=== PATIENT | male | born 1995 | race Caucasian/White ===

== ENCOUNTER 2018-11-23 00:52 | Emergency (ER) | payer MEDICAID ==
[~2018-11-23] VITALS: Ht 188 cm; Wt 74.8 kg
[2018-11-23 01:01] VITALS: BP 145/86
[2018-11-23] MEDS ORDERED: BACITRACIN TOP OINT 1 UD PKG TOP ONE (04:15)
[2018-11-23] MEDS ORDERED: LIDOCAINE 1% HCL (LOCAL ANESTH.) INJ 20ML MDV IJ ONE (04:15)
[2018-11-23] MEDS ORDERED: cefTRIAXone SOD 1,000 MG VL IM ONE (04:45)
[2018-11-23] MEDS ORDERED: IBUPROFEN 800 MG TAB PO ONE (04:45)
== END 2018-11-23 05:18 | disposition home or self-care (01) ==
LOC: EDBD 00:52 → ER 00:56
DX: S61.411A Laceration without foreign body of right hand, initial encounter (principal); F17.210 Nicotine dependence, cigarettes, uncomplicated; X99.1XXA Assault by knife, initial encounter; Y93.89 Activity, other specified; Y99.8 Other external cause status; Y92.89 Other specified places as the place of occurrence of the external cause
CPT/HCPCS: 12002; 73130; 96372; 99283; J0696; J2001

== ENCOUNTER 2019-08-24 09:01 | Emergency (ER) | payer MEDICAID ==
[~2019-08-24] VITALS: Ht 172.7 cm; Wt 79.4 kg
[2019-08-24 09:11] VITALS: BP 123/82
[2019-08-24] MEDS ORDERED: IBUPROFEN 600 MG TAB PO ONE (10:45)
== END 2019-08-24 10:57 | disposition home or self-care (01) ==
LOC: EDBD 09:01 → ER 09:01
DX: R07.89 Other chest pain (principal); F17.210 Nicotine dependence, cigarettes, uncomplicated
CPT/HCPCS: 71046; 93005

== ENCOUNTER 2019-09-13 01:55 | Emergency (ER) | payer MEDICAID ==
[~2019-09-13] VITALS: Ht 182.9 cm; Wt 81.6 kg
[2019-09-13 03:51] VITALS: BP 129/92
== END 2019-09-13 04:08 | disposition home or self-care (01) ==
LOC: EDBD 01:55 → ER 01:55
DX: S02.2XXA Fracture of nasal bones, initial encounter for closed fracture (principal); S30.811A Abrasion of abdominal wall, initial encounter; S60.512A Abrasion of left hand, initial encounter; S60.511A Abrasion of right hand, initial encounter; S80.812A Abrasion, left lower leg, initial encounter; S80.811A Abrasion, right lower leg, initial encounter; I10 Essential (primary) hypertension; F17.210 Nicotine dependence, cigarettes, uncomplicated; Y08.02XA Assault by strike by baseball bat, initial encounter; Y93.89 Activity, other specified; Y92.89 Other specified places as the place of occurrence of the external cause; Y99.8 Other external cause status
CPT/HCPCS: 70450; 70486; 71045; 72125